=== PATIENT | female | born 1945 | race Caucasian/White ===

== ENCOUNTER → 2024-08-20 15:40 | Outpatient (CLI) | payer MEDICARE, OTHER, SELFPAY ==
--- NOTE | 2024-08-20 | DI.CT.S_ITS ---
PROCEDURE: CT CHEST WO CON INDICATIONS: malignant pleural effusion TECHNIQUE: Noncontrast 5 mm thick sections acquired from the pulmonary apices to the posterior costophrenic angles. 1 mm lung window, 5 mm thick coronal and sagittal and 7 mm axial MIP reformats were then acquired. For radiation dose reduction, the following was used: automated exposure control, adjustment of mA and/or kV according to patient size. COMPARISON: [facility], CT, CT CHEST WITHOUT CONTRAST, 03/06/2024, 8:03. FINDINGS: Image quality: Diagnostic Lungs and pleura: Diffuse septal thickening, mild. Scattered atelectasis and scarring also present. Small bilateral pleural effusions again seen, with associated pleural thickening. Diffuse pleural calcifications, involving also the fissures. No suspicious enlarging noncalcified pulmonary nodule over 6 mm. Stable index nodule in the left lower lobe measuring 4 mm, previously 4 mm when remeasured. Adjacent to right pleural effusion, nodular opacity measuring 1.9 cm in thickness is slightly smaller than prior (). Mediastinum, heart, and esophagus: A right port catheter is seen terminating right atrium. Coronary calcifications. Borderline enlarged heart. Aortic valve calcifications. No pathologic lymph nodes by size criteria. Chest wall and thyroid: Left chest wall and axillary postsurgical changes. Upper abdomen: No gross abnormality on these noncontrast images. Gallstones are partially seen Bones: Sclerotic bone lesions again seen. The L1 lesion might appears slightly more lucent, partially visualized (), overall burden of disease grossly stable by CT. IMPRESSION: Persistent bilateral pleural effusions with pleural thickening. A nodular opacity adjacent to right pleural effusion is slightly decreased. No new or enlarging pulmonary nodules. Many pleural and fissural calcified nodules are again seen. Multiple sclerotic bone lesions grossly similar to prior. However, the partially visualized L1 lesion appears slightly more lucent. Bones scattered PET-CT could better evaluate activity if clinically indicated. Other findings above. Dictated by: Quinten Verduzco M.D. on 08/20/2024 at 16:47 Approved by: Quinten Verduzco M.D. on 08/20/2024 at 16:55
== END ==
PROVIDERS: PCP Family Medicine; Referring Provider Internal Medicine Critical Care Medicine; Visit Provider Internal Medicine Critical Care Medicine
DX: J92.9 Pleural plaque without asbestos (principal); J91.0 Malignant pleural effusion; R91.8 Other nonspecific abnormal finding of lung field; M89.9 Disorder of bone, unspecified; K80.20 Calculus of gallbladder without cholecystitis without obstruction
CPT/HCPCS: 71250